=== PATIENT | male | born 1960 | race Caucasian/White ===

== ENCOUNTER → 2017-07-08 | Outpatient (CLI) | payer OTHER ==
[~2017-07-08] MED LIST: ASPEC81 PO; MULT-506 PO; OMEG10007 PO
[2017-07-08 16:32] LABS: BASO % 0.3 %; BASO ABS # 0.03 K/uL (0-0.2); COMPLETE YES; EOS % 0.6 %; HEMATOCRIT 44.6 % (42-52); IG% 0.2 %; LYMPH % 41.5 %; LYMPH ABS # 3.74 K/uL (1.2-3.4); MEAN CELL VOLUME 94.9 fL (80-100); MEAN CORPUSCULAR HEMOGLOBIN 31.9 pg (25-34); MEAN CORPUSCULAR HGB CONC 33.6 g/dl (32-36); MEAN PLATELET VOLUME 10.7 fL (7.4-10.4); MONO % 13.5 %; NEUT % 43.9 %; PLATELET COUNT 313 K/uL (130-400); WHITE BLOOD COUNT 9.02 K/uL (4.8-10.8)
[2017-07-08 16:37] LABS: URINE APPEARANCE CLEAR (CLEAR); URINE BILIRUBIN NEG (NEG); URINE COLOR YELLOW; URINE EPITHELIAL CELL AUTO 0-5 /lpf (0-5); URINE NITRITE NEG (NEG); UROBILINOGEN NEG (NEG)
[2017-07-08 16:44] LABS: MANUAL MICROSCOPIC REQUIRED? NO; REVIEW REQ? NO
[2017-07-08 17:10] LABS: CHOLESTEROL/HDL RATIO 4.2; PROSTATE SPECIFIC ANTIGEN 0.657 ng/ml (0.000-4.000)
[2017-07-09 06:54] LABS: ESTIMATED AVERAGE GLUCOSE 111 mg/dl; HA1C FLAG Normal (Normal)
== END | disposition home or self-care (01) ==
LOC: C.LAB1850 15:15
PROVIDERS: ATTEND Internal Medicine
DX: Z00.00 Encounter for general adult medical examination without abnormal findings (principal); I26.99 Other pulmonary embolism without acute cor pulmonale

== ENCOUNTER → 2017-07-28 | Outpatient (CLI) | payer OTHER ==
--- NOTE | 2017-07-29 07:46 | PAP/PSG TECHNICIAN REPORT ---
[facility] Registered Pharmacist Polysomnogram Report Study name: None Report date: 07/29/2017 Study date: 07/28/2017 Referring Physician: Shimon Rabago M.D. Name: LIBAN COLEMAN Interpreting Physician: Jonathan Anthony D.O. Date of : 1960 Registered Pharmacist: Lorraine Gregory RPS. Sex: Male Age: 56 StudyType: PSG Weight: 235 lbs Height: 56 years, Height 5' 11" BMI: 32.77 Medications: Aspirin 325 mg, Fish oil 1000 mg, Glucosamine 1500, Multi Vitamins Patient History 56 yr. old male here tonight for a diagnostic sleep study. Patient has a history of sleep apnea, and can breathe better sitting up. During bucket hooker patient stated he was not interested in CPAP. Patients [place] Sleepiness Scale Score is 4/24. Parameters Monitored NPSG: E1-M2, E2-M1, Fp1-M2, Fp2-M1, F3-M2, F4-M2, F4-M1, C3-M2, C4-M2, C4-M1, O1-M2, O2-M2, O2-M1, T3-M2, T4-M1, P3-M2, P4-M1, CHIN1, CHIN2, HR, EKG, Legs, PFLOW, SNOR, FLOW, CFLOW, Tidal Volume, THOR, ABDO, SpO2, PLTH, CPRESS, ETCO2 Wave, ETCO2, pH Sleep Architecture Sleep Stages Time at Lights Off 10:44:06 PM STAGES Time (min.) TST (%) Time at Lights On 5:29:36 AM Wake 48.5 -- Total Recording Time (TRT) 404.00 min. N1 23.0 6 Total Sleep Period (TSP) 380.5 min. N2 220.5 62 Total Sleep Time (TST) 355.5min. N3 39.5 11 Awake Time 48.5 min. REM 72.5 20 Wake after Sleep Onset 28.5 min. Sleep Efficiency (SE) 88 % Sleep Onset Latency (DYLAN) 21.5 min. Number of Stage 1 Shifts None Awakenings 22 Stage Changes 91 Number of REM periods 8 REM 72.5 20 REM Latency 85.5 min. NREM 283.0 80 Body Position Analysis Supine Right Left Side Prone Vertical Total Sleep Time (min.) 0.0 167.5 188.0 355.50 0.0 18.5 Total Sleep Time (%) 0% 47% 53% 100 0% N/A% Total Sleep Time REM (min.) 0.0 51.0 21.5 None 0.0 0.0 Total Sleep Time NREM (min.) 0.0 116.5 166.5 None 0.0 0.0 Intermittent Wake (min.) 0.0 10.3 19.7 None 0.0 18.5 Total Sleep Period (%) 0% None None None None None Arousals Myoclonus (PLM) * Events Count Index Events Count Index Spontaneous 7 1 Events Awake (PLMW) 67 82.9 Respiratory 0 0.0 Events Asleep w/ Arousal (PLMA) 10 1.7 PLM 10 2 Events Asleep w/o Arousal (PLMS) 32 5.4 Snoring 8 1 Total Asleep 42 7.1 Total 25 4 Total 109 16 Respiratory Analysis * CA OA MA CH H RERA Total Count 0 0 0 0 7 0 7 Index 0.0 0.0 0.0 0 1.2 0 1.2 Mean Duration 0.0 0.0 0.0 0.00 45.7 0.0 45.7 Longest Duration 0.0 0.0 0.0 0.00 0.0 0.0 78.5 Respiratory Event Summary Total Supine ~Supine Right Left Prone REM NREM Apneas Count 0 N/A 0 0 0 N/A 0 0 Index 0.0 N/A 0 0.0 0.0 N/A 0 0 Hypopneas (4% Desat) Count 7 N/A 7 4 3 N/A 5 2 Index 1.2 N/A 1 1.4 1.0 N/A 4.1 0.4 Apneas & All Hypopneas Count 7 N/A 7 4 3 N/A 5 2 Index 1.2 N/A 1 1 1 N/A 4.1 0.4 Respiratory Events (Blindmaker+All Hyp+RERA) Count 7 N/A 7 4 3 N/A 5 2 Index 1.2 N/A 1 1.4 1.0 N/A 4.1 0.4 Respiratory Related Arousal Count 0 N/A 0 0 0 N/A 0 0 Index 0.0 N/A 0 0 0 N/A 0 0 Snoring Analysis Supine Right Left Prone REM NREM Total Snore duration 1.3 min Snores count N/A 15 13 N/A 11 17 28 Snore mean duration 2.9 Sec Snores index N/A 5 4 N/A 9.1 3.6 4.7 TST with snoring (%) 0.4% Desaturation Event Summary: Minimum %SpO2 Event Count Mean/Min/Max Duration(sec.) Desaturation Index % Time In Bed > 90 17 34.8 / 13.0 / 60.0 5.3 48.0 86 - 90 2 29.0 / 28.8 / 29.3 0.6 52.0 81 - 85 0 N/A 0.0 0.0 76 - 80 0 N/A 0.0 0.0 71 - 75 0 N/A 0.0 0.0 66 - 70 0 N/A 0.0 0.0 61 - 65 0 N/A 0.0 0.0 56 - 60 0 N/A 0.0 0.0 51 - 55 0 N/A 0.0 0.0 < 50 0 N/A 0.0 0.0 Total REM NREM Awake <50% 0.0 min. 0.0 min. 0.0 min. 0.0 min. 51 - 60% 0.0 min. 0.0 min. 0.0 min. 0.0 min. 61 - 70% 0.0 min. 0.0 min. 0.0 min. 0.0 min. 71 - 80% 0.0 min. 0.0 min. 0.0 min. 0.0 min. 81 - 90% 209.5 min. 17.8 min. 170.3 min. 21.4 min. 91 - 100% 193.3 min. 54.7 min. 112.7 min. 26.0 min. Average 90 91 90 91 Minimum SpO2 83 87 86 83 Desaturation Event Index 2.5 5.8 0.6 8.7 # Desat. Events below 89% 5 1 1 3 Time(%) with Saturation below 89% 23.8 0.2 22.0 1.6 Time(min.) with Saturation below 89% 96.0 0.7 88.7 6.5 Time (mins) REM (mins) NREM (mins) % of TST SpO2 Below 90% 9 6 N3 36.3 SpO2 Below 88% 1 0 0 7 Heart Rate Analysis Min (bpm) Max (bpm) Average (bpm) Awake 46 237 57 NREM 46 127 54 REM 47 75 54 Overall 46 127 54 Supplemental O2 Values Minimum O2 level: None Value Start Time End Time Registered Pharmacist Comments Mr. Coleman slept in the right and left positions. No cardiac arrhythmia or PLMs noted. No bruxism noted. Snoring was noted and scored as a 0 on a scale of 0 through 5. (0=no snoring, 5=snoring loud enough to be heard through a closed door or down the [place] way) Mr. Coleman did not wake to use the restroom during the night. Mr. Coleman stated, that was a fairly normal night. The final report will be interpreted and signed by a sleep physician. The completed physician report will then be placed in the patient medical record. Therapy (cm H2O) 0 TIB (min.) 404.0 TST (min.) 355.5 Sleep Onset (min.) 21.5 REM Onset From Sleep (min.) 85.5 Sleep Efficiency % 88 Wakefulness (%) 12 Wakefulness (min.) 48.5 NREM 1 (%) 6 NREM 1 (min.) 23.0 NREM 2 (%) 62 NREM 2 (min.) 220.5 NREM 3 (%) 11 NREM 3 (min.) 39.5 REM (%) 20 REM (min.) 72.5 # Arousals 25 Arousal Index 4 # Snore 28 Snore Index 4.7 AHI 1.2 AHI Supine N/A AHI Non-Supine 1 NREM AHI 0.4 REM AHI 4.1 RDI 1.2 # Obstructive Apnea 0 # Central Apnea 0 # Mixed Apnea 0 # Hypopneas 7 RERAs 0 Total Respiratory Events 8 Time Below SpO2 89% (min.) 89.5 Mean NREM SpO2 (%) 90 Mean REM SpO2 (%) 91 Mean Sleep SpO2 (%) 90 Min NREM SpO2 (%) 86 Min REM SpO2 (%) 87 Position Supine (min.) 0.0 Position Non-supine (min.) 355.5 LM Index Sleep 7.1 LM Index NREM 5.7 LM Index REM 12.4 Mean Heart Rate (bpm) 54 Min Heart Rate (bpm) 46
--- NOTE | 2017-08-01 17:36 | Sleep Study ---
Sleep Study Report Date of Service: 07/28/2017 Sleep Study Report Clinical data: The patient is a 56-year-old male with a BMI of 32.77. He has a prior history of obstructive sleep apnea. He had some type of palate surgery done in the past. He is referred for a sleep study to determine if he still has sleep apnea. This was an in-lab overnight polysomnography. Sleep architecture: The total sleep period was 380.5 minutes. The total sleep time was 355.5 minutes. The sleep efficiency was minimally abnormal at 88 percent. The sleep latency was 21.5 minutes which would be top normal. Wake after sleep onset was 28.5 minutes. The REM latency was normal at 85.5 minutes. Sleep consisted of stage N1 6 percent, stage N2 62 percent, stage N3 11 percent, stage REM 20 percent. Arousal data: The patient had a total of 25 arousals including 7 spontaneous arousals, 10 PLM arousals, and 8 snoring arousals. The arousal index was 4. PLM data: The patient had a total of 42 periodic limb movements of sleep for a PLM index of 7.1. There were 10 arousals associated with limb movements for a PLM arousal index of 1.7. EKG: The underlying cardiac rhythm was normal sinus. The minimum heart rate was 46 beats per minute. The maximum was 75 beats per minute. The average heart rate was 54 beats per minute. No cardiac arrhythmia was noted. Respiratory data: The patient had a total of 7 respiratory events, all hypopneas. Hypopneas were scored according to the 4 percent desaturation rule. The mean duration of the hypopneas was 45.7 seconds. The apnea-hypopnea index was 1.2 events per hour. This reflects no significant sleep apnea. Oximetry data: The average saturation for the night was 90 percent. The minimum saturation was 83 percent. There was a total of 96 minutes with saturations less than 89 percent. There was only 1 minutes with saturations less than 88 percent. Pbx Inspector comments: The patient slept in the right and left positions. No cardiac arrhythmia or PLMS noted. No bruxism noted. Snoring was noted and scored as a 0 on a scale of 0 through 5. He did not awaken to use the restroom during the night. Impressions: 1. No evidence of obstructive sleep apnea Comments: The patient had overall a good night sleep. His sleep efficiency was minimally reduced. The sleep architecture was fairly normal. There were relatively few arousals. His sleep was quite well consolidated. There was a very mild number of limb movements. He had just a few hypopneas. There was no evidence of any significant sleep apnea. He did not have any significant snoring. Recommendations: 1. The patient should follow up with Dr. Rabago Copies To 1: Jonathan Anthony DO; Shimon Rabago M.D.
== END | disposition home or self-care (01) ==
LOC: C.NEUR 20:00
PROVIDERS: ATTEND Internal Medicine
DX: G47.33 Obstructive sleep apnea (adult) (pediatric) (principal); I26.99 Other pulmonary embolism without acute cor pulmonale